=== PATIENT | male | born 2000 | race Caucasian/White ===

== ENCOUNTER 2022-08-23 17:02 | Emergency (ER) | payer BC ==
[~2022-08-23] VITALS: Ht 182.9 cm; Wt 75.0 kg
[2022-08-23 17:08] VITALS: BP 122/74; TEMP 98.2
[2022-08-23 18:48] VITALS: PULSE 79
== END 2022-08-23 18:49 | disposition home or self-care (01) ==
LOC: COL.ER 17:02
DX: S62.392A Other fracture of third metacarpal bone, right hand, initial encounter for closed fracture (principal); Z28.310 Unvaccinated for COVID-19; X50.1XXA Overexertion from prolonged static or awkward postures, initial encounter; Y93.67 Activity, basketball; Y92.310 Basketball court as the place of occurrence of the external cause